=== PATIENT | male | born 1940 | race Caucasian/White ===

== ENCOUNTER → 2016-09-24 | Outpatient (REF) | LOC: ZLAB.WCH 10:28 | DX: Z01.89 Encounter for other specified special examinations (principal) ==

== ENCOUNTER → 2016-12-24 | Outpatient (REF) | LOC: ZLAB.WCH 11:03 | DX: Z01.89 Encounter for other specified special examinations (principal) ==

== ENCOUNTER → 2017-01-26 | Outpatient (REF) | LOC: ZLAB.WCH 10:41 | DX: Z01.89 Encounter for other specified special examinations (principal) ==

== ENCOUNTER → 2017-03-26 | Outpatient (REF) | LOC: ZLAB.WCH 14:28 | DX: Z01.89 Encounter for other specified special examinations (principal) ==

== ENCOUNTER → 2017-06-26 | Outpatient (REF) | LOC: ZLAB.WCH 18:46 | DX: Z01.89 Encounter for other specified special examinations (principal) ==

== ENCOUNTER → 2017-09-24 | Outpatient (REF) | LOC: ZLAB.WCH 08:38 | DX: Z01.89 Encounter for other specified special examinations (principal) | CPT/HCPCS: G0103 ==

== ENCOUNTER → 2017-09-24 | Outpatient (REF) ==
[2017-09-24 18:48] LABS: THYROID STIMULATING HORMONE 1.75 uIU/mL (0.465-4.680)
[2017-09-24 19:54] LABS: PSA-TOTAL 3.31 ng/mL (0-4)
== END ==
LOC: ZLAB.WCH 17:56
PROVIDERS: Internal Medicine
DX: Z01.89 Encounter for other specified special examinations (principal)
CPT/HCPCS: G0103

== ENCOUNTER → 2017-12-29 | Outpatient (REF) | LOC: ZLAB.WCH 15:51 | DX: Z01.89 Encounter for other specified special examinations (principal) ==

== ENCOUNTER → 2018-01-26 | Outpatient (REF) | LOC: ZLAB.WCH 08:31 | DX: Z01.89 Encounter for other specified special examinations (principal) ==

== ENCOUNTER → 2018-02-25 | Outpatient (REF) | LOC: ZLAB.WCH 15:52 | DX: Z01.89 Encounter for other specified special examinations (principal) ==

== ENCOUNTER → 2018-04-27 | Outpatient (REF) | LOC: ZLAB.WCH 09:05 | DX: Z01.89 Encounter for other specified special examinations (principal) ==

== ENCOUNTER → 2018-06-17 | Outpatient (REF) | LOC: ZLAB.WCH 15:15 | DX: Z01.89 Encounter for other specified special examinations (principal) ==

== ENCOUNTER → 2018-09-24 | Outpatient (REF) ==
[~2018-09-24] MED LIST: ALDACTONE 25MG25 MG PO; AMOXICILLIN 8751 TAB PO; ASPIRIN E.C. 8181 MG PO; ATENOLOL50 MG PO; BACTRIM DS 8001 TAB PO; CARDIZEM CD120 MG PO; HYDROCHLOR50 MG PO; LASIX 40MG TABL40 MG PO; METFORMIN HCL850 MG PO; PERCOCET 325 MG1 TA2 PO; POTASSIUM CH2 MEQ/ML PO; UROXATRAL10 MG PO; ZANTAC 150150 MG PO
== END ==
LOC: ZLAB.WCH 10:42
DX: Z01.89 Encounter for other specified special examinations (principal)

== ENCOUNTER → 2020-08-17 | Outpatient (REF) ==
[~2020-08-17] MED LIST changes: +B-121000 MCG PO; +BENADRYL25 M2 PO; +CEPHALEXIN500 M1 PO; +ELIQUIS 5MG PO; +FLOMAX 0.40.4 MG/CAP PO; +IMODIUM 2MG CAPS2 MG PO; +K-DUR 10 MEQ T10 MEQ PO; +LASIX 80MG TABL80 MG PO; +LEVEMIR100 U/ML SQ; +LEXAPRO 10MG10 MG PO; +MUCINEX FAST-M180 M2 PO; +NITROSTAT0.4 MG/TAB SL; +NOVOLOG 100U100 U/M1 SQ; +PEPCID 20MG TAB20 MG PO; +PEPTO BISMOL262 MG PO; +ROBITUSSIN DM 105 ML PO; +SYSTANE 0.4%-0.1 SOL OP; +THROAT LOZENGES1 LOZ MM; +TYLENOL 325MG325 MG PO; +VICTOZA6 MG/ML SQ; +VITAMIN D 50,1.25 MG PO
== END ==
LOC: COL.CARD 15:28
DX: R00.2 Palpitations (principal)

== ENCOUNTER 2020-09-07 11:05 | Day surgery (SDC) | payer MEDICARE ==
--- NOTE | 2020-09-06 17:27 | NUR ---
Nurse Kelly from [facility] contacted. She is unable to fully review pt's history at this time. She does report pt had negative covid swab last week done at their facility. Preprocedure instructions reviewed with her.
[~2020-09-07] VITALS: Ht 157.5 cm; Wt 99.6 kg
[2020-09-07] VITALS (7 sets, daily range): BP systolic 129–165; BP diastolic 47–70; PULSE 47–62; TEMP 97.6–98
[~2020-09-07 11:05] MED LIST changes: -B-121000 MCG PO; -BENADRYL25 M2 PO; -CEPHALEXIN500 M1 PO; -ELIQUIS 5MG PO; -FLOMAX 0.40.4 MG/CAP PO; -IMODIUM 2MG CAPS2 MG PO; -K-DUR 10 MEQ T10 MEQ PO; -LASIX 80MG TABL80 MG PO; -LEVEMIR100 U/ML SQ; -LEXAPRO 10MG10 MG PO; -MUCINEX FAST-M180 M2 PO; -NITROSTAT0.4 MG/TAB SL; -NOVOLOG 100U100 U/M1 SQ; -PEPCID 20MG TAB20 MG PO; -PEPTO BISMOL262 MG PO; -ROBITUSSIN DM 105 ML PO; -SYSTANE 0.4%-0.1 SOL OP; -THROAT LOZENGES1 LOZ MM; -TYLENOL 325MG325 MG PO; -VICTOZA6 MG/ML SQ; -VITAMIN D 50,1.25 MG PO
[2020-09-07 11:49] LABS: HEMATOCRIT 44.4 % (42.0-52.0); HEMOGLOBIN 14.4 g/dl (13.5-18.0); MEAN CELL VOLUME 90 fl (80.0-100.0); MEAN CORPUSCULAR HEMOGLOBIN 29 pg (27.0-31.0); MEAN CORPUSCULAR HGB CONC 32 g/dl (33.0-37.0); MEAN PLATELET VOLUME 9.9 fl (7.4-10.4); PLATELET COUNT 161 K/mm3 (130-400); RED BLOOD COUNT 4.91 M/mm3 (4.20-5.60)
[2020-09-07 11:56] LABS: PROTHROMBIN TIME 11.1 SECONDS (9.7-12.8)
[2020-09-07 11:57] LABS: CALCIUM 8.5 mg/dL (8.4-10.2); CREATININE, serum 0.88 (0.66-1.25); POTASSIUM 4.4 mmol/L (3.4-5.0)
[2020-09-07] MEDS ORDERED: ASPIRIN E.C. 8181 MG PO (12:08)
[2020-09-07] MEDS ORDERED: ELIQUIS 5MG PO (12:10)
[2020-09-07] MEDS ORDERED: THROAT LOZENGES1 LOZ MM (12:11)
[2020-09-07] MEDS ORDERED: BENADRYL25 M2 PO (12:11)
[2020-09-07] MEDS ORDERED: VITAMIN D 50,1.25 MG PO (12:12)
[2020-09-07] MEDS ORDERED: FLOMAX 0.40.4 MG/CAP PO (12:13)
[2020-09-07] MEDS ORDERED: IMODIUM 2MG CAPS2 MG PO (12:13)
[2020-09-07] MEDS ORDERED: LASIX 80MG TABL80 MG PO (12:13)
[2020-09-07] MEDS ORDERED: LEXAPRO 10MG10 MG PO (12:14)
[2020-09-07] MEDS ORDERED: LEVEMIR100 U/ML SQ (12:14)
[2020-09-07] MEDS ORDERED: MUCINEX FAST-M180 M2 PO (12:15)
[2020-09-07] MEDS ORDERED: NITROSTAT0.4 MG/TAB SL (12:15)
[2020-09-07] MEDS ORDERED: NOVOLOG 100U100 U/M1 SQ ×2 (12:19→12:34)
[2020-09-07] MEDS ORDERED: K-DUR 10 MEQ T10 MEQ PO (12:35)
[2020-09-07] MEDS ORDERED: PEPCID 20MG TAB20 MG PO (12:35)
[2020-09-07] MEDS ORDERED: VICTOZA6 MG/ML SQ (12:35)
[2020-09-07] MEDS ORDERED: ROBITUSSIN DM 105 ML PO (12:37)
[2020-09-07] MEDS ORDERED: B-121000 MCG PO (12:37)
[2020-09-07] MEDS ORDERED: SYSTANE 0.4%-0.1 SOL OP (12:38)
[2020-09-07] MEDS ORDERED: PEPTO BISMOL262 MG PO (12:39)
[2020-09-07] MEDS ORDERED: TYLENOL 325MG325 MG PO (12:39)
--- NOTE | 2020-09-07 16:00 | NUR ---
Patient arrived to Med room 316 around this time, alert/oriented, vital signs stable, left chest incision site dressing C/D/I, ICE applied at htis time, left arm in immobilizer sling, patient denies pain or needs at thistime, call light in reach , tele on and will continue to monitor
--- NOTE | 2020-09-07 22:26 | NUR ---
1900- PT ALERT AND ORIENTATED X 3. SLIGHT DISCOMFORT TO LT UPPER CHEST. SLING IN PLACE ELEVATED ON PILLOW AND ICED. RATES PAIN 3/10. DENIES SOA, NAUSEA OR CHEST PAIN. 2100- BS TX PER SLIDING SCALE. TYLENOL FOR DISCOMFORT. LIGHTS DOWN, TV ON. NEEDS MET. CALL LIGHT WI REACH.
--- NOTE | 2020-09-08 04:54 | NUR ---
pt rested though out the night without incident. Needs met.
[2020-09-08 05:00] VITALS: BP 121/52; PULSE 59; TEMP 97.9
[2020-09-08 08:05] VITALS: BP 144/64; PULSE 59; TEMP 97.6
--- NOTE | 2020-09-08 08:29 | NUR ---
Assessment completed, alert/oriented, vital signs stable, reports mild incisional discomfort but refused tylenol when offered, ICE pack applied, incision site dressing is C/D/I some bruising around site, A-paced on telemetry, distal pulses are palpable, lungs CTA/ denies any SOA or resp difficulties, I have andre a.kelly medfaraz, I have done the [employer] device upload, he is sitting up eating breakfast, offered asssitance to the bathroom but patient is choosing to use urinal in bed, denies other needs, anticipate discharge back to nursing facility
[2020-09-08] MEDS ORDERED: CEPHALEXIN500 M1 PO (11:36)
[2020-09-08 11:47] VITALS: BP 153/72; PULSE 59; TEMP 98
--- NOTE | 2020-09-08 14:19 | NUR ---
SW update, Faxed Dc orders to [facility] at [phone]. Notfied nurse to nurse, facilitated transport and pickup. Nf.
--- NOTE | 2020-09-08 14:49 | NUR ---
SW met with patient about care. Patient reports that he has had excellent care. Patient reports that he resides at [facility] and they provide medication assistance, transportations, and take him to his PCP Dr. Barron. Patient denies having anyone apart of his care but has a son. Patient indicated that he uses a walker and has a pacemaker. Patient reports he has access to other services through the longterm. Assigned nurse is Monica. NF
--- NOTE | 2020-09-08 15:00 | NUR ---
Discharge orders reviewed with patient, instructed to keep left arm immobilized, called report to receiving nurse at Marlen Aponte RN, discussed bathing restriction/ may shower keep site clean and dry, IV and tele removed,
== END 2020-09-08 18:48 | disposition home or self-care (01) ==
LOC: COL.CAR 11:05 → MEDICAL 15:58 → COL.CAR 09-08 18:48
PROVIDERS: Internal Medicine Cardiovascular Disease
DX: I44.0 Atrioventricular block, first degree (principal); I49.5 Sick sinus syndrome; I50.9 Heart failure, unspecified; R60.9 Edema, unspecified; E11.9 Type 2 diabetes mellitus without complications; K21.9 Gastro-esophageal reflux disease without esophagitis; E87.1 Hypo-osmolality and hyponatremia; E87.5 Hyperkalemia; I48.92 Unspecified atrial flutter; Z79.899 Other long term (current) drug therapy; Z79.4 Long term (current) use of insulin; Z80.9 Family history of malignant neoplasm, unspecified
CPT/HCPCS: OP; C1769; C1785; C1894; C1898; J0690; J1815; J2250; J3010; J7030

== ENCOUNTER 2021-08-09 12:15 | Inpatient (IN) | payer MEDICARE, OTHER, MEDICAID ==
[~2021-08-09 12:15] MED LIST changes: +B-121000 MCG PO; +BENADRYL25 M2 PO; +CEPHALEXIN500 M1 PO; +ELIQUIS 5MG PO; +FLOMAX 0.40.4 MG/CAP PO; +IMODIUM 2MG CAPS2 MG PO; +K-DUR 10 MEQ T10 MEQ PO; +LASIX 80MG TABL80 MG PO; +LEVEMIR100 U/ML SQ; +LEXAPRO 10MG10 MG PO; +MUCINEX FAST-M180 M2 PO; +NITROSTAT0.4 MG/TAB SL; +NOVOLOG 100U100 U/M1 SQ; +PEPCID 20MG TAB20 MG PO; +PEPTO BISMOL262 MG PO; +ROBITUSSIN DM 105 ML PO; +SYSTANE 0.4%-0.1 SOL OP; +THROAT LOZENGES1 LOZ MM; +TYLENOL 325MG325 MG PO; +VICTOZA6 MG/ML SQ; +VITAMIN D 50,1.25 MG PO
[2021-11-19 09:23] LABS: BASO % 0.7 % (0.0-2.0); EOS # 0.1 K/mm3 (0.0-0.7); EOS % 2.5 % (0.0-4.0); GRAN # 3.4 K/mm3 (1.4-6.5); GRAN % 61.1 % (42.2-75.2); HEMATOCRIT 46.1 % (42.0-52.0); HEMOGLOBIN 14.9 g/dl (13.5-18.0); LYMPH # 1.6 K/mm3 (1.2-3.4); LYMPH % 28.3 % (20.0-51.0); MEAN CELL VOLUME 94 fl (80.0-100.0); MEAN CORPUSCULAR HEMOGLOBIN 30 pg (27-31); MEAN CORPUSCULAR HGB CONC 32 g/dl (33.0-37.0); MEAN PLATELET VOLUME 9.4 fl (7.4-10.4); MONO # 0.4 K/mm3 (0.1-0.6); PLATELET COUNT 175 K/mm3 (130-400); RED BLOOD COUNT 4.92 M/mm3 (4.20-5.60)
[2021-11-19 09:30] LABS: INR 1.3 (0.8-3.0); PROTHROMBIN TIME 14.9 SECONDS (9.7-12.8)
[2021-11-19 09:35] LABS: ALBUMIN 3.5 gm/dL (3.4-4.8); BILIRUBIN,TOTAL 0.6 mg/dL (0.2-1.2); CALCIUM 8.4 mg/dL (8.4-10.2); CREATININE, serum 0.93 mg/dL (0.72-1.25); MAGNESIUM 2.2 mg/dL (1.6-2.6); POTASSIUM 3.7 mmol/L (3.5-4.5)
[2021-11-19 09:43] VITALS: BP 115/50; PULSE 67; TEMP 97.8
[2021-11-19 11:27] VITALS: BP 81/65; PULSE 71; TEMP 98
[2021-11-19 11:57] VITALS: BP 99/34; PULSE 64
--- NOTE | 2021-11-19 12:01 | NUR ---
RECIEVED CALL FROM TELE REPORTING HR IN 30'S. WENT INTO PT ROOM AND PT DENIES DIZZINESS OR LIGHTHEADEDNESS, PT SLEEPING UPON ENTRY TO ROOM. VITALS TAKEN, RADIAL PULSE PALPATED. VITALS AND REPORTED LOW BP REPORTED TO JERONIMO GARRIDO WITH CARDIOLOGY.
[2021-11-19] MEDS ORDERED: KLONOPIN 0.5MG0.5 MG PO (13:33)
[2021-11-19 15:18] VITALS: BP 118/42; PULSE 61; TEMP 97.8
--- NOTE | 2021-11-19 18:36 | NUR ---
PT DENIES PAIN, PT PLEASANT, ORDERED DINNER, USES WALKER WITH AMBULATION, NO OTHER NEEDS
[2021-11-19 20:08] VITALS: BP 110/69; PULSE 59; TEMP 98.2
[2021-11-19 23:57] VITALS: BP 122/49; PULSE 59; TEMP 98
--- NOTE | 2021-11-20 02:18 | NUR ---
Pt alert and oriented this evening, resting quietly in the bed. Denies pain. Did not note any chest pain/dyspnea/diaphoresis. Continuing on sotalol. Shift assessment performed. Medications administered per orders and education provided. Pt tolerating PO medications. Tele monitor on. VS WNL, pt runs NSR to sinus korina at night. Satting in 90's on room air. No significant skin issues. Noted 2 scabs/sores on the pt's BLE's, dry and open to air. BLE have 2-3+ edema and are slightly reddened. Pt does not report any questions at this time, will continue to monitor.
[2021-11-20 04:07] VITALS: BP 128/58; PULSE 61; TEMP 97.9
--- NOTE | 2021-11-20 05:16 | NUR ---
No adverse events overnight. Pt remains alert and oriented. Denying pain. No SOB/chest pain/dyspnea. Adequate urine output overnight. Tolerating PO. BP and HR stable on sotalol. EKG scheduled for this morning. Pt ran NSR and sinus korina at 59 overnight. Resting queitly now. Pt reports no questions, will continue to monitor.
[2021-11-20 06:17] LABS: BASO % 0.7 % (0.0-2.0); EOS # 0.2 K/mm3 (0.0-0.7); EOS % 3.1 % (0.0-4.0); GRAN % 50.4 % (42.2-75.2); HEMATOCRIT 43.8 % (42.0-52.0); HEMOGLOBIN 14.6 g/dl (13.5-18.0); LYMPH # 2.2 K/mm3 (1.2-3.4); LYMPH % 36.6 % (20.0-51.0); MEAN CELL VOLUME 93 fl (80.0-100.0); MEAN CORPUSCULAR HEMOGLOBIN 31 pg (27-31); MEAN CORPUSCULAR HGB CONC 33 g/dl (33.0-37.0); MEAN PLATELET VOLUME 9.7 fl (7.4-10.4); MONO # 0.5 K/mm3 (0.1-0.6); MONO % 8.9 % (1.7-9.3); PLATELET COUNT 186 K/mm3 (130-400); RED BLOOD COUNT 4.72 M/mm3 (4.20-5.60); REDCELL DISTRIBUTION WIDTH-CV 13.7 % (11.5-14.5)
[2021-11-20 06:36] LABS: CALCIUM 7.9 mg/dL (8.4-10.2); CREATININE, serum 0.79 mg/dL (0.72-1.25); MAGNESIUM 2.1 mg/dL (1.6-2.6); POTASSIUM 3.9 mmol/L (3.5-4.5)
[2021-11-20 07:24] VITALS: BP 134/57; PULSE 60; TEMP 97.5
--- NOTE | 2021-11-20 09:48 | NUR ---
cardroom worker met with patient to discuss discharge plan. Patient lives at [facility] facility in [place]. He reports to being independent with his ADL's but does utilize a walker to assist with mobility. Patient has no home oxygen needs. PCP is Dr. Lynch and he utilizes [facility] for medications with no cost difficulty. Patient reports that he is . H does have a DPOA-HC established listing his son Jayesh Pacheco. Patient will return back to once medically ready. Discharge plan: [facility] medically ready.
--- NOTE | 2021-11-20 09:57 | NUR ---
Scheduled medication given. Shift assessment preformed. VSS. Patient A&O. Upon flushing patient's IV in right FA, NS infiltrated. IV taken out, catheter intact. Patient denies any pain, discomfort, SOA, or further needs at this time. Call light in reach. Fall precautions in place.
[2021-11-20 11:03] VITALS: BP 120/55; PULSE 61; TEMP 97.9
--- NOTE | 2021-11-20 13:46 | NUR ---
[facility] faxed and emailed updates to Jael at [facility].
[2021-11-20 15:26] VITALS: BP 146/79; PULSE 62; TEMP 98
--- NOTE | 2021-11-20 17:48 | NUR ---
Patient has had an uneventful day. VSS. Patient A&O. Denies any pain, discomfort, SOA, or further needs at this time. Call light in reach. Fall precautions in place.
[2021-11-20 20:57] VITALS: BP 126/50; PULSE 71; TEMP 97.6
--- NOTE | 2021-11-20 22:14 | NUR ---
Patient assessed around 2119. Denied having pain and discomfort at that time. Remains on telemetry, HRR, paced. Continues on Sotalol per orders, denies having any questions, needs, or concern about medication. In bed with call light within reach. Voiced no questions, needs, or concerns at that time.
[2021-11-21] VITALS: BP 106/51; PULSE 60; TEMP 98.1
[2021-11-21 03:04] VITALS: BP 106/51; PULSE 60; TEMP 98.1
[2021-11-21 05:14] VITALS: BP 121/54; PULSE 60; TEMP 97.8
--- NOTE | 2021-11-21 06:00 | NUR ---
Patient has voiced no questions, needs, or concerns this shift. In bed with call light within reach.
[2021-11-21 06:29] LABS: BASO # 0.1 K/mm3 (0.0-0.2); BASO % 0.8 % (0.0-2.0); EOS # 0.3 K/mm3 (0.0-0.7); EOS % 4.3 % (0.0-4.0); GRAN # 3.2 K/mm3 (1.4-6.5); GRAN % 53.6 % (42.2-75.2); HEMOGLOBIN 14.6 g/dl (13.5-18.0); LYMPH # 1.9 K/mm3 (1.2-3.4); LYMPH % 31.3 % (20.0-51.0); MEAN CELL VOLUME 92 fl (80.0-100.0); MEAN CORPUSCULAR HEMOGLOBIN 31 pg (27-31); MEAN CORPUSCULAR HGB CONC 33 g/dl (33.0-37.0); MEAN PLATELET VOLUME 9.9 fl (7.4-10.4); MONO # 0.6 K/mm3 (0.1-0.6); MONO % 9.7 % (1.7-9.3); PLATELET COUNT 177 K/mm3 (130-400); RED BLOOD COUNT 4.79 M/mm3 (4.20-5.60); REDCELL DISTRIBUTION WIDTH-CV 13.5 % (11.5-14.5)
[2021-11-21 06:49] LABS: CALCIUM 7.9 mg/dL (8.4-10.2); CREATININE, serum 0.86 mg/dL (0.72-1.25); MAGNESIUM 2.1 mg/dL (1.6-2.6); POTASSIUM 3.8 mmol/L (3.5-4.5)
[2021-11-21 07:10] VITALS: BP 112/61; PULSE 67; TEMP 97.6
--- NOTE | 2021-11-21 07:39 | NUR ---
PATIENT RECEIVED, STABLE STATE HE HAD A CALM NIGHT DENIES ANY PAIN, HAS SOME REDDNES ON BILATERAL LOWER EXRIMITIES.
--- NOTE | 2021-11-21 08:19 | NUR ---
DR. ALEXANDER NOTIFIED OF INC QTC, ORDERED TO HOLD UNTIL DR. JERNIGAN ROUNDS AND HE WILL MAKE THE DECISION TO HOLD OR PASS THE MEDICATION.
--- NOTE | 2021-11-21 09:45 | NUR ---
pt pleasant, aox4, denies pain, pt sleeping upon entry, pt assessment performed, medications given
[2021-11-21] MEDS ORDERED: BETAPACE 80MG80 MG PO (11:27)
[2021-11-21 11:37] VITALS: BP 116/50; PULSE 69; TEMP 97.5
--- NOTE | 2021-11-21 11:59 | NUR ---
Rkystle: No judaism preference Situation: Athletics Teacher visited room on rounds Background: PT was resting when buggy operator came in Assessment: PT seems very content Recommendation: Athletics Teacher will follow up as needed
--- NOTE | 2021-11-21 13:54 | NUR ---
IV AND TELE REMOVED, PT DC TO GAMING DIRECTOR CARE ACCOMPANIED BY GAMING DIRECTOR CARE EMPLOYEE, VSS AND AMBULATING WITH A WALKER AT DISCHARGE
== END 2021-11-21 14:00 | DRG 310 ==
LOC: MEDICAL 08-11 12:14
PROVIDERS: ADMIT Internal Medicine Cardiovascular Disease
DX: I48.0 Paroxysmal atrial fibrillation (principal); I42.9 Cardiomyopathy, unspecified; I48.92 Unspecified atrial flutter; E11.9 Type 2 diabetes mellitus without complications; K21.9 Gastro-esophageal reflux disease without esophagitis; Z95.0 Presence of cardiac pacemaker; Z79.01 Long term (current) use of anticoagulants; Z79.82 Long term (current) use of aspirin; Z79.4 Long term (current) use of insulin
CPT/HCPCS: J1815